=== PATIENT | female | born 2000 | race American Indian/Alaskan Native ===

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

== ENCOUNTER 2020-01-20 22:30 | Inpatient (IN) | payer MEDICAID ==
[2020-01-21] MEDS ORDERED: ACETAMINOPHEN 325 MG TAB PO PRN (02:46)
--- NOTE | 2020-01-21 02:54 | History and Physical Report ---
History of Present Illness Date of examination: 01/21/20 Date of admission: 01/21/2020 Chief complaint: Contractions History of present illness: 19 year old female presents to L&D with contractions. . EDC 02/06/2020 (Pt. stated EDC). Patient states she received care at [facility]; records are not available. Patient denies health problems. She denies complications with this . No records are available. labs drawn upon admission. Patient denies LOF or VB. Patient reports active movement. Past History Past Medical History: no pertinent history Past Surgical History: no surgical history [employer] History: gonorrhea (history of gonorrhea, treated and cured). denies: chlamydia, hepatitis B, hepatitis C, herpes, HIV, syphilis, trichomonas Family/Genetic History: cancer Social history: single, full code. denies: smoking, alcohol abuse, prescription drug abuse, IV drug use - Obstetrical History Expected Date of Delivery: 02/06/20 Actual Gestation: 37 Week(s) 5 Day(s) : 1 Para: 0 Hx # Term Pregnancies: 0 Number of Pregnancies: 0 Spontaneous Abortions: 0 Induced : 0 Number of Living Children: 0 Medications and Allergies Allergies Allergy/AdvReac Type Severity Reaction Status Date / Time No Known Allergies Allergy Verified 12/30/18 16:26 Home Medications Medication Instructions Recorded Confirmed Last Taken Type No.137/Iron/Folic Acd 1 each PO 01/20/20 Unknown History [[facility] Vitamins Tablet] Review of Systems All systems: negative (contractions) - Vital Signs Vital signs: Vital Signs Temp Pulse Resp BP Pulse Ox 98.4 F 80 12 122/77 96 01/20/20 22:57 01/20/20 22:57 01/20/20 22:57 01/20/20 22:57 01/20/20 22:57 Temp Pulse Resp BP Pulse Ox 98.4 F 67 12 122/77 96 01/20/20 22:57 01/21/20 02:51 01/20/20 22:57 01/20/20 23:04 01/21/20 02:51 - Physical Exam Abdomen: Positive: normal appearance, soft. Negative: distention, tenderness, guarding, rigidity Genitourinary (Female): Positive: normal external genitalia, normal perenium. Negative: perineal/vulvar lesions Vagina: Positive: normal moisture Uterus: Positive: enlarged. Negative: tender Anus/Rectum: Positive: normal perianal skin Extremities: Positive: normal. Negative: tenderness, edema - Obstetrical FHR: category 1 Uterine Contraction Monitor Mode: External Cervical Dilatation: 3 Cervical Effacement Percentage: 90 station: -1 Uterine Contraction Pattern: Regular Uterine Contraction Intensity: Mild Results All other labs normal. Assessment and Plan A: at 37 weeks, 4 days gestation. Contractions; rule out labor. GBS unknown. Limited care; no records available. P: Admit for observation. Draw labs. Obtain records. Continuous EFM. Recheck cervix for change/active labor. When in active labor, order GBS prophylaxis.
[2020-01-21] MEDS ORDERED: fentaNYL 100 MCG/2 ML INJ IV ONE (04:56)
[2020-01-21 06:29] LABS: Basophils % (Auto) 0.4 % (0.0-1.8); Eosinophils # (Auto) 0.1 K/mm3 (0.0-0.4); Eosinophils % (Auto) 0.9 % (0.0-4.3); Hematocrit 33.2 % (30.3-42.9); Hemoglobin 11.5 gm/dl (10.1-14.3); Lymphocytes # (Auto) 2.7 K/mm3 (1.2-5.4); Lymphocytes % (Auto) 31.3 % (13.4-35.0); Mean Corpuscular HGB Conc 35 % (30-34); Mean Corpuscular Volume 81 fl (79-97); Monocytes # (Auto) 0.7 K/mm3 (0.0-0.8); Monocytes % (Auto) 8.3 % (0.0-7.3); Platelet Count 242 K/mm3 (140-440); Red Blood Count 4.09 M/mm3 (3.65-5.03); Red Cell Distribution Width 15.7 % (13.2-15.2)
[2020-01-21] MEDS: LACTATED RINGERS 1,000 ML IV SCH ×3 (07:21→14:45)
[2020-01-21] MEDS ORDERED: fentaNYL 100 MCG/2 ML INJ ONE (10:03)
--- NOTE | 2020-01-21 10:05 | Progress Note ---
Assessment and Plan A: IUP @ 37 5/7 Weeks Category I Tracing Active Labor GBS Unknown Poor Pain Control P: AROM Pitocin Augmentation GBS Prophylaxis Prepare for Epidural Anesthesia Subjective - Subjective Date of service: 01/21/20 Patient reports: movement normal, contractions Objective - Vital Signs Vital Signs: Vital Signs - 12hr 01/20/20 01/20/20 01/20/20 22:57 23:04 23:06 Temperature 98.4 F Pulse Rate 80 80 99 H Respiratory 12 Rate Blood Pressure 122/77 Blood Pressure 122/77 [Right] O2 Sat by Pulse 96 96 Oximetry 01/20/20 01/20/20 01/20/20 23:11 23:16 23:21 Temperature Pulse Rate 86 79 84 Respiratory Rate Blood Pressure Blood Pressure [Right] O2 Sat by Pulse 97 97 97 Oximetry 01/20/20 01/20/20 01/20/20 23:26 23:31 23:36 Temperature Pulse Rate 82 82 95 H Respiratory Rate Blood Pressure Blood Pressure [Right] O2 Sat by Pulse 97 97 96 Oximetry 01/20/20 01/20/20 01/20/20 23:41 23:46 23:51 Temperature Pulse Rate 74 90 88 Respiratory Rate Blood Pressure Blood Pressure [Right] O2 Sat by Pulse 97 96 96 Oximetry 01/20/20 01/21/20 01/21/20 23:56 00:01 00:06 Temperature Pulse Rate 84 87 74 Respiratory Rate Blood Pressure Blood Pressure [Right] O2 Sat by Pulse 98 96 96 Oximetry 01/21/20 01/21/20 01/21/20 00:11 00:16 00:21 Temperature Pulse Rate 88 83 79 Respiratory Rate Blood Pressure Blood Pressure [Right] O2 Sat by Pulse 97 97 97 Oximetry 01/21/20 01/21/20 01/21/20 00:26 00:31 00:36 Temperature Pulse Rate 78 76 84 Respiratory Rate Blood Pressure Blood Pressure [Right] O2 Sat by Pulse 98 96 96 Oximetry 01/21/20 01/21/20 01/21/20 00:41 00:46 00:51 Temperature Pulse Rate 82 74 87 Respiratory Rate Blood Pressure Blood Pressure [Right] O2 Sat by Pulse 96 97 97 Oximetry 01/21/20 01/21/20 01/21/20 00:56 01:01 01:06 Temperature Pulse Rate 94 H 78 70 Respiratory Rate Blood Pressure Blood Pressure [Right] O2 Sat by Pulse 99 97 96 Oximetry 01/21/20 01/21/20 01/21/20 01:11 01:16 01:21 Temperature Pulse Rate 91 H 79 75 Respiratory Rate Blood Pressure Blood Pressure [Right] O2 Sat by Pulse 98 96 96 Oximetry 01/21/20 01/21/20 01/21/20 01:26 01:31 01:36 Temperature Pulse Rate 73 96 H 76 Respiratory Rate Blood Pressure Blood Pressure [Right] O2 Sat by Pulse 96 97 98 Oximetry 01/21/20 01/21/20 01/21/20 01:41 01:46 01:51 Temperature Pulse Rate 68 70 74 Respiratory Rate Blood Pressure Blood Pressure [Right] O2 Sat by Pulse 96 97 97 Oximetry 01/21/20 01/21/20 01/21/20 01:56 02:01 02:04 Temperature Pulse Rate 70 75 75 Respiratory Rate Blood Pressure Blood Pressure [Right] O2 Sat by Pulse 97 97 93 Oximetry 01/21/20 01/21/20 01/21/20 02:06 02:10 02:11 Temperature Pulse Rate 87 70 72 Respiratory Rate Blood Pressure Blood Pressure [Right] O2 Sat by Pulse 96 93 95 Oximetry 01/21/20 01/21/20 01/21/20 02:16 02:17 02:21 Temperature Pulse Rate 71 66 79 Respiratory Rate Blood Pressure Blood Pressure [Right] O2 Sat by Pulse 95 94 97 Oximetry 01/21/20 01/21/20 01/21/20 02:25 02:26 02:31 Temperature Pulse Rate 77 73 70 Respiratory Rate Blood Pressure Blood Pressure [Right] O2 Sat by Pulse 93 98 96 Oximetry 01/21/20 01/21/20 01/21/20 02:34 02:36 02:39 Temperature Pulse Rate 71 77 68 Respiratory Rate Blood Pressure Blood Pressure [Right] O2 Sat by Pulse 94 98 94 Oximetry 01/21/20 01/21/20 01/21/20 02:41 02:46 02:51 Temperature Pulse Rate 66 68 67 Respiratory Rate Blood Pressure Blood Pressure [Right] O2 Sat by Pulse 97 96 96 Oximetry 01/21/20 01/21/20 01/21/20 02:56 02:58 03:01 Temperature Pulse Rate 67 68 69 Respiratory Rate Blood Pressure Blood Pressure [Right] O2 Sat by Pulse 97 93 98 Oximetry 01/21/20 01/21/20 01/21/20 03:06 03:11 03:16 Temperature Pulse Rate 64 71 67 Respiratory Rate Blood Pressure Blood Pressure [Right] O2 Sat by Pulse 98 97 95 Oximetry 01/21/20 01/21/20 01/21/20 03:21 03:26 03:31 Temperature Pulse Rate 74 66 67 Respiratory Rate Blood Pressure Blood Pressure [Right] O2 Sat by Pulse 96 97 98 Oximetry 01/21/20 01/21/20 01/21/20 03:36 03:41 03:46 Temperature Pulse Rate 71 73 70 Respiratory Rate Blood Pressure Blood Pressure [Right] O2 Sat by Pulse 96 97 97 Oximetry 01/21/20 01/21/20 01/21/20 03:51 03:56 04:01 Temperature Pulse Rate 74 62 63 Respiratory Rate Blood Pressure Blood Pressure [Right] O2 Sat by Pulse 97 94 96 Oximetry 01/21/20 01/21/20 01/21/20 04:26 04:27 04:31 Temperature 99.0 F Pulse Rate 68 70 74 Respiratory 20 Rate Blood Pressure Blood Pressure 123/60 [Right] O2 Sat by Pulse 97 97 Oximetry 01/21/20 01/21/20 01/21/20 04:36 04:40 04:41 Temperature Pulse Rate 64 63 65 Respiratory Rate Blood Pressure Blood Pressure [Right] O2 Sat by Pulse 97 94 95 Oximetry 01/21/20 01/21/20 01/21/20 04:46 04:50 04:51 Temperature Pulse Rate 59 L 59 L 66 Respiratory Rate Blood Pressure Blood Pressure [Right] O2 Sat by Pulse 96 94 96 Oximetry 01/21/20 01/21/20 01/21/20 04:56 05:00 05:01 Temperature Pulse Rate 61 60 61 Respiratory Rate Blood Pressure Blood Pressure [Right] O2 Sat by Pulse 97 94 97 Oximetry 01/21/20 01/21/20 01/21/20 05:06 05:11 05:16 Temperature Pulse Rate 60 65 70 Respiratory Rate Blood Pressure Blood Pressure [Right] O2 Sat by Pulse 97 98 96 Oximetry 01/21/20 01/21/20 01/21/20 05:21 05:24 05:26 Temperature Pulse Rate 60 66 57 L Respiratory Rate Blood Pressure Blood Pressure [Right] O2 Sat by Pulse 96 94 98 Oximetry 01/21/20 01/21/20 01/21/20 05:31 05:36 05:41 Temperature Pulse Rate 61 60 59 L Respiratory Rate Blood Pressure Blood Pressure [Right] O2 Sat by Pulse 97 99 96 Oximetry 01/21/20 01/21/20 01/21/20 05:42 05:46 05:51 Temperature Pulse Rate 92 H 56 L 62 Respiratory Rate Blood Pressure Blood Pressure [Right] O2 Sat by Pulse 92 97 97 Oximetry 01/21/20 01/21/20 01/21/20 05:56 06:00 06:01 Temperature Pulse Rate 83 74 59 L Respiratory Rate Blood Pressure Blood Pressure [Right] O2 Sat by Pulse 99 91 92 Oximetry 01/21/20 01/21/20 01/21/20 06:06 06:10 06:11 Temperature Pulse Rate 71 73 65 Respiratory Rate Blood Pressure Blood Pressure [Right] O2 Sat by Pulse 97 94 95 Oximetry 01/21/20 01/21/20 01/21/20 06:16 06:21 06:26 Temperature Pulse Rate 68 83 101 H Respiratory Rate Blood Pressure Blood Pressure [Right] O2 Sat by Pulse 97 96 97 Oximetry 01/21/20 01/21/20 01/21/20 06:28 06:31 06:33 Temperature Pulse Rate 98 H 89 128 H Respiratory Rate Blood Pressure Blood Pressure [Right] O2 Sat by Pulse 94 99 94 Oximetry 01/21/20 01/21/20 01/21/20 06:36 06:41 06:46 Temperature Pulse Rate 92 H 106 H 69 Respiratory Rate Blood Pressure Blood Pressure [Right] O2 Sat by Pulse 95 96 97 Oximetry 01/21/20 01/21/20 01/21/20 06:51 06:56 07:01 Temperature Pulse Rate 71 81 75 Respiratory Rate Blood Pressure Blood Pressure [Right] O2 Sat by Pulse 97 96 97 Oximetry 01/21/20 01/21/20 01/21/20 07:06 07:11 07:16 Temperature Pulse Rate 65 88 71 Respiratory Rate Blood Pressure Blood Pressure [Right] O2 Sat by Pulse 98 98 99 Oximetry 01/21/20 01/21/20 01/21/20 07:21 07:26 07:31 Temperature Pulse Rate 64 76 76 Respiratory Rate Blood Pressure Blood Pressure [Right] O2 Sat by Pulse 96 97 97 Oximetry 01/21/20 01/21/20 01/21/20 07:36 07:40 07:41 Temperature 98.8 F Pulse Rate 75 73 Respiratory Rate Blood Pressure Blood Pressure [Right] O2 Sat by Pulse 96 97 Oximetry 01/21/20 01/21/20 01/21/20 07:46 07:51 07:56 Temperature Pulse Rate 78 75 68 Respiratory Rate Blood Pressure Blood Pressure [Right] O2 Sat by Pulse 97 96 95 Oximetry 01/21/20 01/21/20 01/21/20 08:01 08:06 08:11 Temperature Pulse Rate 83 80 74 Respiratory Rate Blood Pressure Blood Pressure [Right] O2 Sat by Pulse 88 96 98 Oximetry 01/21/20 01/21/20 01/21/20 08:16 08:21 08:26 Temperature Pulse Rate 75 74 66 Respiratory Rate Blood Pressure Blood Pressure [Right] O2 Sat by Pulse 98 97 95 Oximetry 01/21/20 01/21/20 01/21/20 08:31 08:36 08:41 Temperature Pulse Rate 76 59 L 68 Respiratory Rate Blood Pressure Blood Pressure [Right] O2 Sat by Pulse 96 97 96 Oximetry 01/21/20 01/21/20 01/21/20 08:46 08:51 08:56 Temperature Pulse Rate 60 69 61 Respiratory Rate Blood Pressure Blood Pressure [Right] O2 Sat by Pulse 97 97 97 Oximetry 01/21/20 01/21/20 01/21/20 09:01 09:06 09:11 Temperature Pulse Rate 67 73 63 Respiratory Rate Blood Pressure Blood Pressure [Right] O2 Sat by Pulse 96 98 97 Oximetry 01/21/20 01/21/20 01/21/20 09:16 09:21 09:26 Temperature Pulse Rate 80 73 77 Respiratory Rate Blood Pressure Blood Pressure [Right] O2 Sat by Pulse 95 95 95 Oximetry 01/21/20 01/21/20 01/21/20 09:31 09:36 09:41 Temperature Pulse Rate 89 89 91 H Respiratory Rate Blood Pressure Blood Pressure [Right] O2 Sat by Pulse 93 98 100 Oximetry 01/21/20 01/21/20 01/21/20 09:46 09:49 09:51 Temperature Pulse Rate 90 125 H 109 H Respiratory Rate Blood Pressure Blood Pressure [Right] O2 Sat by Pulse 98 71 L 90 Oximetry 01/21/20 09:56 Temperature Pulse Rate 98 H Respiratory Rate Blood Pressure Blood Pressure [Right] O2 Sat by Pulse 97 Oximetry - Exam Breasts: normal Cardiovascular: Regular rate Lungs: Normal air movement Abdomen: Present: normal appearance, soft Uterus: Present: normal, firm, fundal height above umbilicus FHR: category 1 Uterine Contraction Monitor Mode: External Cervical Dilatation: 4 (Moderate amount of clear fluid upon AROM @ 0940) Cervical Effacement Percentage: 90 station: 0 Uterine Contraction Pattern: Regular Uterine Tone Measurement Phase: Resting Uterine Contraction Intensity: Moderate Extremities: normal - Labs Labs: Abnormal Labs 01/21/20 05:58 MCHC 35 H RDW 15.7 H [place] % (Auto) 8.3 H Laboratory Results - last 24 hr 01/21/20 01/21/20 01/21/20 05:58 05:58 05:58 WBC 8.6 RBC 4.09 Hgb 11.5 Hct 33.2 MCV 81 MCH 28 MCHC 35 H RDW 15.7 H Plt Count 242 Lymph % (Auto) 31.3 [place] % (Auto) 8.3 H Eos % (Auto) 0.9 Baso % (Auto) 0.4 Lymph # (Auto) 2.7 [place] # (Auto) 0.7 Eos # (Auto) 0.1 Baso # (Auto) 0.0 Seg Neutrophils % 59.1 Seg Neutrophils # 5.1 Hep Bs Antigen Non-reactive Rubella IgG Antibody Immune Antibody Screen 01/21/20 06:00 WBC RBC Hgb Hct MCV MCH MCHC RDW Plt Count Lymph % (Auto) [place] % (Auto) Eos % (Auto) Baso % (Auto) Lymph # (Auto) [place] # (Auto) Eos # (Auto) Baso # (Auto) Seg Neutrophils % Seg Neutrophils # Hep Bs Antigen Rubella IgG Antibody Antibody Screen Negative
[2020-01-21] MEDS ORDERED: TERBUTALINE 1 MG/1 ML INJ SUB-Q PRN (10:07)
[2020-01-21] MEDS ORDERED: LIDOCAINE (2%) 20 MG/1 ML VIAL 20 ML MDV INFILTRATI NR (10:07)
[2020-01-21] MEDS ORDERED: ONDANSETRON 4 MG/2 ML INJ IV PRN ×3 (10:07→21:28)
[2020-01-21] MEDS ORDERED: ePHEDrine SULFATE 50 MG/1 ML INJ IV PRN (10:07)
[2020-01-21] MEDS ORDERED: AMPICILLIN/NS 2 GM/100 ML 2 GM/100 ML BAG IV ONE (10:07)
[2020-01-21] MEDS ORDERED: OXYTOCIN DRIP 30 UNITS/500 ML BAG IV SCH (11:00)
[2020-01-21] MEDS: PRENATAL VIT27-FE FUMARATE-FOLIC ACID VIT TAB PO SCH (11:24)
[2020-01-21] MEDS ORDERED: BUTORPHANOL 2 MG/1 ML INJ IV PRN (12:01)
[2020-01-21] MEDS ORDERED: AMPICILLIN/NS 1 GM/50 ML 1 GM/50 ML BAG IV SCH (14:00)
[2020-01-21] MEDS ORDERED: DEXMEDETOMIDINE 200 MCG/2 ML VIAL IV ONE (14:01)
[2020-01-21] MEDS ORDERED: NalbUPHINE 10 MG/1 ML INJ IV PRN (14:22)
[2020-01-21] MEDS ORDERED: diphenhydrAMINE 50 MG/ML VIAL IV PRN (14:22)
[2020-01-21] MEDS ORDERED: NALOXONE 2 MG/2 ML INJ IV PRN (14:22)
--- NOTE | 2020-01-21 14:23 | Anesthesia Consultation ---
Anesthesia Consult and Med Hx Date of service: 01/21/20 - Airway Anesthetic Teeth Evaluation: Good ROM Head & Neck: Adequate Mental/Hyoid Distance: Adequate Mallampati Class: Class II Intubation Access Assessment: Good - Pulmonary Exam CTA: Yes - Cardiac Exam Cardiac Exam: RRR - Pre-Operative Health Status ASA Pre-Surgery Classification: ASA2 Proposed Anesthetic Plan: Epidural - Pulmonary Hx Smoking: No Hx Asthma: No COPD: No Hx Pneumonia: No Hx Sleep Apnea: No - Cardiovascular System Hx Hypertension: No - Central Nervous System Hx Seizures: No Hx Psychiatric Problems: No - Gastrointestinal Hx Gastroesophageal Reflux Disease: No - Endocrine Hx Renal Disease: No Hx End Stage Renal Disease: No Hx Hypothyroidism: No Hx Hyperthyroidism: No - Hematic Hx Anemia: No Hx Sickle Cell Disease: No - Other Systems Hx Alcohol Use: No
--- NOTE | 2020-01-21 14:25 | Progress Note ---
Labor Epidural - Labor Epidural Start Time: 14:00 Stop Time: 14:14 Performed by:: GLENDA ARELLANO Procedure: Patient is requesting a laboring epidural for laboring pain. Patient IDed, H&P reviewed, all questions and concerns were answered, and consent was signed. Timeout was performed at bedside. Patient in sitting position. Sterile prep and drape was performed. 3ml of 1% lidocaine skin wheal at L[3]- L [4]. 18- gauge Touhy epidural needle was advanced to loss of resistance with air technique. Negative CSF negative blood. Epidural catheter advanced to [12] centimeters. [-] Aspiration [-] test dose. Sterile dressing applied. Patient tolerated procedure.
[2020-01-21 14:27] LABS: Hepatitis C Virus Antibody Non-Reactive (NonReactive)
[2020-01-21] MEDS ORDERED: fentaNYL-BUPIV 2 MCG/ML-0.125% 200 MCG/100 ML BAG EPIDURAL SCH (15:00)
--- NOTE | 2020-01-21 15:43 | Progress Note ---
Assessment and Plan A: IUP @ 37 5/7 Weeks Category I Tracing Active Labor GBS Unknown P: Continue Pitocin Augmentation Continue GBS Prophylaxis GBS Prophylaxis Subjective - Subjective Date of service: 01/21/20 Patient reports: movement normal, other (Resting well under epidural) Objective - Vital Signs Vital Signs: Vital Signs - 12hr 01/21/20 01/21/20 01/21/20 03:46 03:51 03:56 Temperature Pulse Rate 70 74 62 Respiratory Rate Blood Pressure Blood Pressure [Right] O2 Sat by Pulse 97 97 94 Oximetry 01/21/20 01/21/20 01/21/20 04:01 04:26 04:27 Temperature 99.0 F Pulse Rate 63 68 70 Respiratory 20 Rate Blood Pressure Blood Pressure 123/60 [Right] O2 Sat by Pulse 96 97 Oximetry 01/21/20 01/21/20 01/21/20 04:31 04:36 04:40 Temperature Pulse Rate 74 64 63 Respiratory Rate Blood Pressure Blood Pressure [Right] O2 Sat by Pulse 97 97 94 Oximetry 01/21/20 01/21/20 01/21/20 04:41 04:46 04:50 Temperature Pulse Rate 65 59 L 59 L Respiratory Rate Blood Pressure Blood Pressure [Right] O2 Sat by Pulse 95 96 94 Oximetry 01/21/20 01/21/20 01/21/20 04:51 04:56 05:00 Temperature Pulse Rate 66 61 60 Respiratory Rate Blood Pressure Blood Pressure [Right] O2 Sat by Pulse 96 97 94 Oximetry 01/21/20 01/21/20 01/21/20 05:01 05:06 05:11 Temperature Pulse Rate 61 60 65 Respiratory Rate Blood Pressure Blood Pressure [Right] O2 Sat by Pulse 97 97 98 Oximetry 01/21/20 01/21/20 01/21/20 05:16 05:21 05:24 Temperature Pulse Rate 70 60 66 Respiratory Rate Blood Pressure Blood Pressure [Right] O2 Sat by Pulse 96 96 94 Oximetry 01/21/20 01/21/20 01/21/20 05:26 05:31 05:36 Temperature Pulse Rate 57 L 61 60 Respiratory Rate Blood Pressure Blood Pressure [Right] O2 Sat by Pulse 98 97 99 Oximetry 01/21/20 01/21/20 01/21/20 05:41 05:42 05:46 Temperature Pulse Rate 59 L 92 H 56 L Respiratory Rate Blood Pressure Blood Pressure [Right] O2 Sat by Pulse 96 92 97 Oximetry 01/21/20 01/21/20 01/21/20 05:51 05:56 06:00 Temperature Pulse Rate 62 83 74 Respiratory Rate Blood Pressure Blood Pressure [Right] O2 Sat by Pulse 97 99 91 Oximetry 01/21/20 01/21/20 01/21/20 06:01 06:06 06:10 Temperature Pulse Rate 59 L 71 73 Respiratory Rate Blood Pressure Blood Pressure [Right] O2 Sat by Pulse 92 97 94 Oximetry 01/21/20 01/21/20 01/21/20 06:11 06:16 06:21 Temperature Pulse Rate 65 68 83 Respiratory Rate Blood Pressure Blood Pressure [Right] O2 Sat by Pulse 95 97 96 Oximetry 01/21/20 01/21/20 01/21/20 06:26 06:28 06:31 Temperature Pulse Rate 101 H 98 H 89 Respiratory Rate Blood Pressure Blood Pressure [Right] O2 Sat by Pulse 97 94 99 Oximetry 01/21/20 01/21/20 01/21/20 06:33 06:36 06:41 Temperature Pulse Rate 128 H 92 H 106 H Respiratory Rate Blood Pressure Blood Pressure [Right] O2 Sat by Pulse 94 95 96 Oximetry 01/21/20 01/21/20 01/21/20 06:46 06:51 06:56 Temperature Pulse Rate 69 71 81 Respiratory Rate Blood Pressure Blood Pressure [Right] O2 Sat by Pulse 97 97 96 Oximetry 01/21/20 01/21/20 01/21/20 07:01 07:06 07:11 Temperature Pulse Rate 75 65 88 Respiratory Rate Blood Pressure Blood Pressure [Right] O2 Sat by Pulse 97 98 98 Oximetry 01/21/20 01/21/20 01/21/20 07:16 07:21 07:26 Temperature Pulse Rate 71 64 76 Respiratory Rate Blood Pressure Blood Pressure [Right] O2 Sat by Pulse 99 96 97 Oximetry 01/21/20 01/21/20 01/21/20 07:31 07:36 07:40 Temperature 98.8 F Pulse Rate 76 75 Respiratory Rate Blood Pressure Blood Pressure [Right] O2 Sat by Pulse 97 96 Oximetry 01/21/20 01/21/20 01/21/20 07:41 07:46 07:51 Temperature Pulse Rate 73 78 75 Respiratory Rate Blood Pressure Blood Pressure [Right] O2 Sat by Pulse 97 97 96 Oximetry 01/21/20 01/21/20 01/21/20 07:56 08:01 08:06 Temperature Pulse Rate 68 83 80 Respiratory Rate Blood Pressure Blood Pressure [Right] O2 Sat by Pulse 95 88 96 Oximetry 01/21/20 01/21/20 01/21/20 08:11 08:16 08:21 Temperature Pulse Rate 74 75 74 Respiratory Rate Blood Pressure Blood Pressure [Right] O2 Sat by Pulse 98 98 97 Oximetry 01/21/20 01/21/20 01/21/20 08:26 08:31 08:36 Temperature Pulse Rate 66 76 59 L Respiratory Rate Blood Pressure Blood Pressure [Right] O2 Sat by Pulse 95 96 97 Oximetry 01/21/20 01/21/20 01/21/20 08:41 08:46 08:51 Temperature Pulse Rate 68 60 69 Respiratory Rate Blood Pressure Blood Pressure [Right] O2 Sat by Pulse 96 97 97 Oximetry 01/21/20 01/21/20 01/21/20 08:56 09:01 09:06 Temperature Pulse Rate 61 67 73 Respiratory Rate Blood Pressure Blood Pressure [Right] O2 Sat by Pulse 97 96 98 Oximetry 01/21/20 01/21/20 01/21/20 09:11 09:16 09:21 Temperature Pulse Rate 63 80 73 Respiratory Rate Blood Pressure Blood Pressure [Right] O2 Sat by Pulse 97 95 95 Oximetry 01/21/20 01/21/20 01/21/20 09:26 09:31 09:36 Temperature Pulse Rate 77 89 89 Respiratory Rate Blood Pressure Blood Pressure [Right] O2 Sat by Pulse 95 93 98 Oximetry 01/21/20 01/21/20 01/21/20 09:41 09:46 09:49 Temperature Pulse Rate 91 H 90 125 H Respiratory Rate Blood Pressure Blood Pressure [Right] O2 Sat by Pulse 100 98 71 L Oximetry 01/21/20 01/21/20 01/21/20 09:51 09:56 10:01 Temperature Pulse Rate 109 H 98 H 94 H Respiratory Rate Blood Pressure Blood Pressure [Right] O2 Sat by Pulse 90 97 97 Oximetry 01/21/20 01/21/20 01/21/20 10:06 10:07 10:11 Temperature Pulse Rate 97 H 84 Respiratory 16 Rate Blood Pressure Blood Pressure [Right] O2 Sat by Pulse 97 97 Oximetry 01/21/20 01/21/20 01/21/20 10:16 10:21 10:26 Temperature Pulse Rate 95 H 91 H 91 H Respiratory Rate Blood Pressure Blood Pressure [Right] O2 Sat by Pulse 97 97 98 Oximetry 01/21/20 01/21/20 01/21/20 10:31 10:36 10:41 Temperature Pulse Rate 74 99 H 67 Respiratory Rate Blood Pressure Blood Pressure [Right] O2 Sat by Pulse 94 97 96 Oximetry 01/21/20 01/21/20 01/21/20 10:42 10:46 10:51 Temperature Pulse Rate 67 72 63 Respiratory Rate Blood Pressure 119/71 Blood Pressure [Right] O2 Sat by Pulse 96 96 Oximetry 01/21/20 01/21/20 01/21/20 10:56 11:01 11:06 Temperature Pulse Rate 64 71 65 Respiratory Rate Blood Pressure Blood Pressure [Right] O2 Sat by Pulse 97 99 96 Oximetry 01/21/20 01/21/20 01/21/20 11:11 11:12 11:16 Temperature Pulse Rate 63 70 62 Respiratory Rate Blood Pressure 121/67 Blood Pressure [Right] O2 Sat by Pulse 95 97 Oximetry 01/21/20 01/21/20 01/21/20 11:21 11:26 11:31 Temperature Pulse Rate 84 89 94 H Respiratory Rate Blood Pressure Blood Pressure [Right] O2 Sat by Pulse 95 96 96 Oximetry 01/21/20 01/21/20 01/21/20 11:36 11:41 11:44 Temperature Pulse Rate 74 70 99 H Respiratory Rate Blood Pressure 131/86 Blood Pressure [Right] O2 Sat by Pulse 95 99 Oximetry 01/21/20 01/21/20 01/21/20 11:46 11:51 11:56 Temperature Pulse Rate 110 H 85 110 H Respiratory Rate Blood Pressure Blood Pressure [Right] O2 Sat by Pulse 99 99 99 Oximetry 01/21/20 01/21/20 01/21/20 12:01 12:06 12:11 Temperature Pulse Rate 80 115 H 83 Respiratory Rate Blood Pressure Blood Pressure [Right] O2 Sat by Pulse 99 98 100 Oximetry 01/21/20 01/21/20 01/21/20 12:12 12:16 12:21 Temperature Pulse Rate 94 H 111 H 95 H Respiratory 16 Rate Blood Pressure 139/82 Blood Pressure [Right] O2 Sat by Pulse 98 98 Oximetry 01/21/20 01/21/20 01/21/20 12:26 12:31 12:36 Temperature Pulse Rate 71 71 67 Respiratory Rate Blood Pressure Blood Pressure [Right] O2 Sat by Pulse 95 95 96 Oximetry 01/21/20 01/21/20 01/21/20 12:41 12:42 12:46 Temperature Pulse Rate 78 63 97 H Respiratory Rate Blood Pressure 119/66 Blood Pressure [Right] O2 Sat by Pulse 96 94 Oximetry 01/21/20 01/21/20 01/21/20 12:51 12:56 13:01 Temperature Pulse Rate 66 62 69 Respiratory Rate Blood Pressure Blood Pressure [Right] O2 Sat by Pulse 91 96 97 Oximetry 01/21/20 01/21/20 01/21/20 13:06 13:11 13:13 Temperature Pulse Rate 74 74 57 L Respiratory Rate Blood Pressure 129/71 Blood Pressure [Right] O2 Sat by Pulse 98 98 Oximetry 01/21/20 01/21/20 01/21/20 13:16 13:21 13:26 Temperature Pulse Rate 69 107 H 69 Respiratory Rate Blood Pressure Blood Pressure [Right] O2 Sat by Pulse 94 98 98 Oximetry 01/21/20 01/21/20 01/21/20 13:31 13:36 13:41 Temperature Pulse Rate 102 H 98 H 102 H Respiratory Rate Blood Pressure Blood Pressure [Right] O2 Sat by Pulse 99 97 99 Oximetry 01/21/20 01/21/20 01/21/20 13:43 13:46 13:51 Temperature Pulse Rate 69 72 65 Respiratory Rate Blood Pressure 126/72 Blood Pressure [Right] O2 Sat by Pulse 97 100 Oximetry 01/21/20 01/21/20 01/21/20 13:56 14:03 14:08 Temperature Pulse Rate 60 93 H 71 Respiratory Rate Blood Pressure Blood Pressure [Right] O2 Sat by Pulse 94 99 99 Oximetry 01/21/20 01/21/20 01/21/20 14:13 14:16 14:18 Temperature Pulse Rate 67 90 86 Respiratory Rate Blood Pressure 113/58 116/62 Blood Pressure [Right] O2 Sat by Pulse 99 99 Oximetry 01/21/20 01/21/20 01/21/20 14:19 14:22 14:23 Temperature Pulse Rate 84 78 93 H Respiratory Rate Blood Pressure 129/59 125/59 Blood Pressure [Right] O2 Sat by Pulse 100 Oximetry 01/21/20 01/21/20 01/21/20 14:25 14:28 14:31 Temperature Pulse Rate 73 95 H 80 Respiratory Rate Blood Pressure 118/56 123/59 122/58 Blood Pressure [Right] O2 Sat by Pulse 99 Oximetry 01/21/20 01/21/20 01/21/20 14:33 14:34 14:37 Temperature Pulse Rate 74 75 78 Respiratory Rate Blood Pressure 118/57 124/63 Blood Pressure [Right] O2 Sat by Pulse 99 Oximetry 01/21/20 01/21/20 01/21/20 14:38 14:40 14:43 Temperature Pulse Rate 73 85 79 Respiratory Rate Blood Pressure 123/59 122/59 Blood Pressure [Right] O2 Sat by Pulse 98 96 Oximetry 01/21/20 01/21/20 01/21/20 14:46 14:48 14:49 Temperature Pulse Rate 71 74 75 Respiratory Rate Blood Pressure 118/56 117/57 Blood Pressure [Right] O2 Sat by Pulse 96 Oximetry 01/21/20 01/21/20 01/21/20 14:52 14:53 14:55 Temperature Pulse Rate 72 67 70 Respiratory Rate Blood Pressure 118/56 115/57 Blood Pressure [Right] O2 Sat by Pulse 97 Oximetry 01/21/20 01/21/20 01/21/20 14:58 15:01 15:02 Temperature Pulse Rate 86 80 84 Respiratory Rate Blood Pressure 119/57 86/50 94/53 Blood Pressure [Right] O2 Sat by Pulse 99 Oximetry 01/21/20 01/21/20 01/21/20 15:03 15:04 15:07 Temperature Pulse Rate 74 75 58 L Respiratory Rate Blood Pressure 92/50 95/55 Blood Pressure [Right] O2 Sat by Pulse 98 Oximetry 01/21/20 01/21/20 01/21/20 15:08 15:10 15:13 Temperature Pulse Rate 70 77 51 L Respiratory Rate Blood Pressure 100/56 105/57 Blood Pressure [Right] O2 Sat by Pulse 98 100 Oximetry 01/21/20 01/21/20 01/21/20 15:16 15:18 15:19 Temperature Pulse Rate 66 73 62 Respiratory Rate Blood Pressure 109/60 116/61 Blood Pressure [Right] O2 Sat by Pulse 100 Oximetry 01/21/20 01/21/20 01/21/20 15:22 15:23 15:27 Temperature Pulse Rate 66 67 Respiratory Rate Blood Pressure 116/65 99/53 Blood Pressure [Right] O2 Sat by Pulse 100 Oximetry 01/21/20 01/21/20 01/21/20 15:28 15:31 15:33 Temperature Pulse Rate 68 69 61 Respiratory Rate Blood Pressure 99/58 Blood Pressure [Right] O2 Sat by Pulse 100 100 Oximetry 01/21/20 15:38 Temperature Pulse Rate 62 Respiratory Rate Blood Pressure Blood Pressure [Right] O2 Sat by Pulse 100 Oximetry - Exam Cardiovascular: Regular rate Lungs: Normal air movement Abdomen: Present: normal appearance, soft Uterus: Present: normal, firm, fundal height above umbilicus FHR: category 1 Uterine Contraction Monitor Mode: External Cervical Dilatation: 8 Cervical Effacement Percentage: 90 station: -1 Uterine Contraction Frequency (min): 2-4 Uterine Contraction Pattern: Regular Uterine Contraction Intensity: Moderate Extremities: normal - Labs Labs: Abnormal Labs 01/21/20 05:58 MCHC 35 H RDW 15.7 H [place] % (Auto) 8.3 H Laboratory Results - last 24 hr 01/21/20 01/21/20 01/21/20 05:58 05:58 05:58 WBC 8.6 RBC 4.09 Hgb 11.5 Hct 33.2 MCV 81 MCH 28 MCHC 35 H RDW 15.7 H Plt Count 242 Lymph % (Auto) 31.3 [place] % (Auto) 8.3 H Eos % (Auto) 0.9 Baso % (Auto) 0.4 Lymph # (Auto) 2.7 [place] # (Auto) 0.7 Eos # (Auto) 0.1 Baso # (Auto) 0.0 Seg Neutrophils % 59.1 Seg Neutrophils # 5.1 Syphilis IgG Antibody Nonreactive Coronavirus (PCR) Hep Bs Antigen Non-reactive Hepatitis C Antibody Non-reactive HIV 1&2 Antibody Rapid Non react HIV P24 Antigen Non react Rubella IgG Antibody Immune Blood Type Antibody Screen 01/21/20 01/21/20 06:00 10:52 WBC RBC Hgb Hct MCV MCH MCHC RDW Plt Count Lymph % (Auto) [place] % (Auto) Eos % (Auto) Baso % (Auto) Lymph # (Auto) [place] # (Auto) Eos # (Auto) Baso # (Auto) Seg Neutrophils % Seg Neutrophils # Syphilis IgG Antibody Coronavirus (PCR) Negative Hep Bs Antigen Hepatitis C Antibody HIV 1&2 Antibody Rapid HIV P24 Antigen Rubella IgG Antibody Blood Type O POSITIVE Antibody Screen Negative
[2020-01-21] MEDS ORDERED: MINERAL OIL 30 ML ORAL LIQD ONE (15:56)
--- NOTE | 2020-01-21 18:08 | Progress Note ---
Subjective - Subjective Date of service: 01/21/20 Interval history: anterior lip/0 station FHT Category 2 plan for passive descent Recheck cervix in 2 hours Kristel Dumont MD Patient reports: movement normal, other (Resting well under epidural) Objective - Vital Signs Vital Signs: Vital Signs - 12hr 01/21/20 01/21/20 01/21/20 06:10 06:11 06:16 Temperature Pulse Rate 73 65 68 Respiratory Rate Blood Pressure O2 Sat by Pulse 94 95 97 Oximetry 01/21/20 01/21/20 01/21/20 06:21 06:26 06:28 Temperature Pulse Rate 83 101 H 98 H Respiratory Rate Blood Pressure O2 Sat by Pulse 96 97 94 Oximetry 01/21/20 01/21/20 01/21/20 06:31 06:33 06:36 Temperature Pulse Rate 89 128 H 92 H Respiratory Rate Blood Pressure O2 Sat by Pulse 99 94 95 Oximetry 01/21/20 01/21/20 01/21/20 06:41 06:46 06:51 Temperature Pulse Rate 106 H 69 71 Respiratory Rate Blood Pressure O2 Sat by Pulse 96 97 97 Oximetry 01/21/20 01/21/20 01/21/20 06:56 07:01 07:06 Temperature Pulse Rate 81 75 65 Respiratory Rate Blood Pressure O2 Sat by Pulse 96 97 98 Oximetry 01/21/20 01/21/20 01/21/20 07:11 07:16 07:21 Temperature Pulse Rate 88 71 64 Respiratory Rate Blood Pressure O2 Sat by Pulse 98 99 96 Oximetry 01/21/20 01/21/20 01/21/20 07:26 07:31 07:36 Temperature Pulse Rate 76 76 75 Respiratory Rate Blood Pressure O2 Sat by Pulse 97 97 96 Oximetry 01/21/20 01/21/20 01/21/20 07:40 07:41 07:46 Temperature 98.8 F Pulse Rate 73 78 Respiratory Rate Blood Pressure O2 Sat by Pulse 97 97 Oximetry 01/21/20 01/21/20 01/21/20 07:51 07:56 08:01 Temperature Pulse Rate 75 68 83 Respiratory Rate Blood Pressure O2 Sat by Pulse 96 95 88 Oximetry 01/21/20 01/21/20 01/21/20 08:06 08:11 08:16 Temperature Pulse Rate 80 74 75 Respiratory Rate Blood Pressure O2 Sat by Pulse 96 98 98 Oximetry 01/21/20 01/21/20 01/21/20 08:21 08:26 08:31 Temperature Pulse Rate 74 66 76 Respiratory Rate Blood Pressure O2 Sat by Pulse 97 95 96 Oximetry 01/21/20 01/21/20 01/21/20 08:36 08:41 08:46 Temperature Pulse Rate 59 L 68 60 Respiratory Rate Blood Pressure O2 Sat by Pulse 97 96 97 Oximetry 01/21/20 01/21/20 01/21/20 08:51 08:56 09:01 Temperature Pulse Rate 69 61 67 Respiratory Rate Blood Pressure O2 Sat by Pulse 97 97 96 Oximetry 01/21/20 01/21/20 01/21/20 09:06 09:11 09:16 Temperature Pulse Rate 73 63 80 Respiratory Rate Blood Pressure O2 Sat by Pulse 98 97 95 Oximetry 01/21/20 01/21/20 01/21/20 09:21 09:26 09:31 Temperature Pulse Rate 73 77 89 Respiratory Rate Blood Pressure O2 Sat by Pulse 95 95 93 Oximetry 01/21/20 01/21/20 01/21/20 09:36 09:41 09:46 Temperature Pulse Rate 89 91 H 90 Respiratory Rate Blood Pressure O2 Sat by Pulse 98 100 98 Oximetry 01/21/20 01/21/20 01/21/20 09:49 09:51 09:56 Temperature Pulse Rate 125 H 109 H 98 H Respiratory Rate Blood Pressure O2 Sat by Pulse 71 L 90 97 Oximetry 01/21/20 01/21/20 01/21/20 10:01 10:06 10:07 Temperature Pulse Rate 94 H 97 H Respiratory 16 Rate Blood Pressure O2 Sat by Pulse 97 97 Oximetry 01/21/20 01/21/20 01/21/20 10:11 10:16 10:21 Temperature Pulse Rate 84 95 H 91 H Respiratory Rate Blood Pressure O2 Sat by Pulse 97 97 97 Oximetry 01/21/20 01/21/20 01/21/20 10:26 10:31 10:36 Temperature Pulse Rate 91 H 74 99 H Respiratory Rate Blood Pressure O2 Sat by Pulse 98 94 97 Oximetry 01/21/20 01/21/20 01/21/20 10:41 10:42 10:46 Temperature Pulse Rate 67 67 72 Respiratory Rate Blood Pressure 119/71 O2 Sat by Pulse 96 96 Oximetry 01/21/20 01/21/20 01/21/20 10:51 10:56 11:01 Temperature Pulse Rate 63 64 71 Respiratory Rate Blood Pressure O2 Sat by Pulse 96 97 99 Oximetry 01/21/20 01/21/20 01/21/20 11:06 11:11 11:12 Temperature Pulse Rate 65 63 70 Respiratory Rate Blood Pressure 121/67 O2 Sat by Pulse 96 95 Oximetry 01/21/20 01/21/20 01/21/20 11:16 11:21 11:26 Temperature Pulse Rate 62 84 89 Respiratory Rate Blood Pressure O2 Sat by Pulse 97 95 96 Oximetry 01/21/20 01/21/20 01/21/20 11:31 11:36 11:41 Temperature Pulse Rate 94 H 74 70 Respiratory Rate Blood Pressure O2 Sat by Pulse 96 95 99 Oximetry 01/21/20 01/21/20 01/21/20 11:44 11:46 11:51 Temperature Pulse Rate 99 H 110 H 85 Respiratory Rate Blood Pressure 131/86 O2 Sat by Pulse 99 99 Oximetry 01/21/20 01/21/20 01/21/20 11:56 12:01 12:06 Temperature Pulse Rate 110 H 80 115 H Respiratory Rate Blood Pressure O2 Sat by Pulse 99 99 98 Oximetry 01/21/20 01/21/20 01/21/20 12:11 12:12 12:16 Temperature Pulse Rate 83 94 H 111 H Respiratory 16 Rate Blood Pressure 139/82 O2 Sat by Pulse 100 98 Oximetry 01/21/20 01/21/20 01/21/20 12:21 12:26 12:31 Temperature Pulse Rate 95 H 71 71 Respiratory Rate Blood Pressure O2 Sat by Pulse 98 95 95 Oximetry 01/21/20 01/21/20 01/21/20 12:36 12:41 12:42 Temperature Pulse Rate 67 78 63 Respiratory Rate Blood Pressure 119/66 O2 Sat by Pulse 96 96 Oximetry 01/21/20 01/21/20 01/21/20 12:46 12:51 12:56 Temperature Pulse Rate 97 H 66 62 Respiratory Rate Blood Pressure O2 Sat by Pulse 94 91 96 Oximetry 01/21/20 01/21/20 01/21/20 13:01 13:06 13:11 Temperature Pulse Rate 69 74 74 Respiratory Rate Blood Pressure O2 Sat by Pulse 97 98 98 Oximetry 01/21/20 01/21/20 01/21/20 13:13 13:16 13:21 Temperature Pulse Rate 57 L 69 107 H Respiratory Rate Blood Pressure 129/71 O2 Sat by Pulse 94 98 Oximetry 01/21/20 01/21/20 01/21/20 13:26 13:31 13:36 Temperature Pulse Rate 69 102 H 98 H Respiratory Rate Blood Pressure O2 Sat by Pulse 98 99 97 Oximetry 01/21/20 01/21/20 01/21/20 13:41 13:43 13:46 Temperature Pulse Rate 102 H 69 72 Respiratory Rate Blood Pressure 126/72 O2 Sat by Pulse 99 97 Oximetry 01/21/20 01/21/20 01/21/20 13:51 13:56 14:03 Temperature Pulse Rate 65 60 93 H Respiratory Rate Blood Pressure O2 Sat by Pulse 100 94 99 Oximetry 01/21/20 01/21/20 01/21/20 14:08 14:13 14:16 Temperature Pulse Rate 71 67 90 Respiratory Rate Blood Pressure 113/58 116/62 O2 Sat by Pulse 99 99 Oximetry 01/21/20 01/21/20 01/21/20 14:18 14:19 14:22 Temperature Pulse Rate 86 84 78 Respiratory Rate Blood Pressure 129/59 125/59 O2 Sat by Pulse 99 Oximetry 01/21/20 01/21/20 01/21/20 14:23 14:25 14:28 Temperature Pulse Rate 93 H 73 95 H Respiratory Rate Blood Pressure 118/56 123/59 O2 Sat by Pulse 100 99 Oximetry 01/21/20 01/21/20 01/21/20 14:31 14:33 14:34 Temperature Pulse Rate 80 74 75 Respiratory Rate Blood Pressure 122/58 118/57 O2 Sat by Pulse 99 Oximetry 01/21/20 01/21/20 01/21/20 14:37 14:38 14:40 Temperature Pulse Rate 78 73 85 Respiratory Rate Blood Pressure 124/63 123/59 O2 Sat by Pulse 98 Oximetry 01/21/20 01/21/20 01/21/20 14:43 14:46 14:48 Temperature Pulse Rate 79 71 74 Respiratory Rate Blood Pressure 122/59 118/56 O2 Sat by Pulse 96 96 Oximetry 01/21/20 01/21/20 01/21/20 14:49 14:52 14:53 Temperature Pulse Rate 75 72 67 Respiratory Rate Blood Pressure 117/57 118/56 O2 Sat by Pulse 97 Oximetry 01/21/20 01/21/20 01/21/20 14:55 14:58 15:01 Temperature Pulse Rate 70 86 80 Respiratory Rate Blood Pressure 115/57 119/57 86/50 O2 Sat by Pulse 99 Oximetry 01/21/20 01/21/20 01/21/20 15:02 15:03 15:04 Temperature Pulse Rate 84 74 75 Respiratory Rate Blood Pressure 94/53 92/50 O2 Sat by Pulse 98 Oximetry 01/21/20 01/21/20 01/21/20 15:07 15:08 15:10 Temperature Pulse Rate 58 L 70 77 Respiratory Rate Blood Pressure 95/55 100/56 O2 Sat by Pulse 98 Oximetry 01/21/20 01/21/20 01/21/20 15:13 15:16 15:18 Temperature Pulse Rate 51 L 66 73 Respiratory Rate Blood Pressure 105/57 109/60 O2 Sat by Pulse 100 100 Oximetry 01/21/20 01/21/20 01/21/20 15:19 15:22 15:23 Temperature Pulse Rate 62 66 Respiratory Rate Blood Pressure 116/61 116/65 O2 Sat by Pulse 100 Oximetry 01/21/20 01/21/20 01/21/20 15:27 15:28 15:31 Temperature Pulse Rate 67 68 69 Respiratory Rate Blood Pressure 99/53 99/58 O2 Sat by Pulse 100 Oximetry 01/21/20 01/21/20 01/21/20 15:33 15:38 15:43 Temperature Pulse Rate 61 62 67 Respiratory Rate Blood Pressure O2 Sat by Pulse 100 100 100 Oximetry 01/21/20 01/21/20 01/21/20 15:48 15:49 15:53 Temperature Pulse Rate 63 61 69 Respiratory Rate Blood Pressure 101/59 O2 Sat by Pulse 100 100 Oximetry 01/21/20 01/21/20 01/21/20 15:58 16:01 16:03 Temperature Pulse Rate 63 86 77 Respiratory Rate Blood Pressure 117/68 O2 Sat by Pulse 100 100 Oximetry 01/21/20 01/21/20 01/21/20 16:08 16:13 16:18 Temperature Pulse Rate 60 67 68 Respiratory Rate Blood Pressure 109/61 O2 Sat by Pulse 100 100 99 Oximetry 01/21/20 01/21/20 01/21/20 16:23 16:28 16:31 Temperature Pulse Rate 62 64 86 Respiratory Rate Blood Pressure 101/63 O2 Sat by Pulse 100 100 Oximetry 01/21/20 01/21/20 01/21/20 16:33 16:38 16:43 Temperature Pulse Rate 77 71 66 Respiratory Rate Blood Pressure O2 Sat by Pulse 100 100 100 Oximetry 01/21/20 01/21/20 01/21/20 16:47 16:48 16:53 Temperature Pulse Rate 81 79 61 Respiratory Rate Blood Pressure 135/86 O2 Sat by Pulse 100 100 Oximetry 01/21/20 01/21/20 01/21/20 16:58 17:01 17:03 Temperature Pulse Rate 62 80 64 Respiratory Rate Blood Pressure 117/80 O2 Sat by Pulse 100 100 Oximetry 01/21/20 01/21/20 01/21/20 17:08 17:13 17:17 Temperature Pulse Rate 73 83 75 Respiratory Rate Blood Pressure 112/63 O2 Sat by Pulse 100 100 Oximetry 01/21/20 01/21/20 01/21/20 17:18 17:23 17:28 Temperature Pulse Rate 67 72 72 Respiratory Rate Blood Pressure O2 Sat by Pulse 100 100 100 Oximetry 01/21/20 01/21/20 01/21/20 17:33 17:38 17:43 Temperature Pulse Rate 104 H 87 86 Respiratory Rate Blood Pressure O2 Sat by Pulse 100 100 98 Oximetry 01/21/20 01/21/20 01/21/20 17:45 17:48 17:53 Temperature Pulse Rate 33 L 92 H 79 Respiratory Rate Blood Pressure 137/80 O2 Sat by Pulse 72 L 99 100 Oximetry 01/21/20 01/21/20 01/21/20 17:58 18:02 18:03 Temperature Pulse Rate 84 104 H 117 H Respiratory Rate Blood Pressure 122/69 O2 Sat by Pulse 98 97 Oximetry - Labs Labs: Abnormal Labs 01/21/20 05:58 MCHC 35 H RDW 15.7 H Placer % (Auto) 8.3 H Laboratory Results - last 24 hr 01/21/20 01/21/20 01/21/20 05:58 05:58 05:58 WBC 8.6 RBC 4.09 Hgb 11.5 Hct 33.2 MCV 81 MCH 28 MCHC 35 H RDW 15.7 H Plt Count 242 Lymph % (Auto) 31.3 Placer % (Auto) 8.3 H Eos % (Auto) 0.9 Baso % (Auto) 0.4 Lymph # (Auto) 2.7 Placer # (Auto) 0.7 Eos # (Auto) 0.1 Baso # (Auto) 0.0 Seg Neutrophils % 59.1 Seg Neutrophils # 5.1 Syphilis IgG Antibody Nonreactive Coronavirus (PCR) Hep Bs Antigen Non-reactive Hepatitis C Antibody Non-reactive HIV 1&2 Antibody Rapid Non react HIV P24 Antigen Non react Rubella IgG Antibody Immune Blood Type Antibody Screen 01/21/20 01/21/20 06:00 10:52 WBC RBC Hgb Hct MCV MCH MCHC RDW Plt Count Lymph % (Auto) Pl[place] % (Auto) Eos % (Auto) Baso % (Auto) Lymph # (Auto) Placer # (Auto) Eos # (Auto) Baso # (Auto) Seg Neutrophils % Seg Neutrophils # Syphilis IgG Antibody Coronavirus (PCR) Negative Hep Bs Antigen Hepatitis C Antibody HIV 1&2 Antibody Rapid HIV P24 Antigen Rubella IgG Antibody Blood Type O POSITIVE Antibody Screen Negative
[2020-01-21] MEDS: OXYTOCIN 20 UNIT/1000ML DRIP 20 UNITS/1,000 ML BAG IV SCH ×2 (20:20→21:08)
--- NOTE | 2020-01-21 20:26 | Procedure Note ---
OB Delivery Note - Delivery Date of Delivery: 01/21/20 Surgeon: JUDI MA Estimated blood loss: other (250ml) - Vaginal Delivery position: OA Intrapartum events: none Route of delivery: Delivery placenta: spontaneous Delivery cord: 3 umbilical vessels Episiotomy: none Delivery laceration: other (superficialperiurethral and right lateral vagianl wall(superficial)) Delivery repair: other (pt offered repair or ice pack for hemostasis and she chose ice pack: will monitor closely) Anesthesia: none Delivery comments: Patient pushed to deliver a viable female over an intact perineum with weight 2568gms and 7/9. Position HIEU no nuchal cord. Spontaneous cry after vigorous suction and stimulation. Delivery of the anterior shoulder atraumatic, remainder of delivery uncomplicated. Cord gasses obtained. Cord clamped cut and baby handed to waiting [facility] team. Spontaneous delivery of an intact placenta with three-vessel cord. Inspection of the perineum cervix and vagina revealed superficial lacerations: hemostasis achieved with ice packs. . Firm fundus, EBL 250ml. All sponge needle and instrument counts correct x2. Mom and baby stable to . Kristel Ma MD
[2020-01-21] MEDS ORDERED: WITCH HAZEL/ GLYCERIN PAD TP PRN (21:28)
[2020-01-21] MEDS ORDERED: MAGNESIUM HYDROXIDE (MOM) ORAL LIQD UDC PO PRN (21:28)
[2020-01-21] MEDS ORDERED: LANOLIN/ZINC/DIMETHICONE (LANSINOH) 7 GM TP PRN (21:28)
[2020-01-21] MEDS ORDERED: diphenhydrAMINE 25 MG CAP PO PRN (21:28)
[2020-01-21] MEDS ORDERED: HYDROcodone/ACETAMINOPHEN 5-325 MG TAB PO PRN (21:28)
[2020-01-21] MEDS ORDERED: PROMETHAZINE 25 MG TAB PO PRN (21:28)
[2020-01-21] MEDS ORDERED: PROMETHAZINE 25 MG RECT SUPP PR PRN (21:28)
[2020-01-21] MEDS ORDERED: MINERAL OIL 30 ML ORAL LIQD PO PRN (22:00)
[2020-01-21] MEDS: IBUPROFEN 600 MG TAB PO SCH (22:14)
[2020-01-22] MEDS: DOCUSATE SODIUM 100 MG CAP PO SCH ×3 (00:12→21:10)
[2020-01-22 00:51] LABS: Amphetamine Screen,Urine PRESUMPTIVE NEGATIVE; Benzodiazepines Screen,Urine PRESUMPTIVE NEGATIVE; Cannabinoid Screen,Urine PRESUMPTIVE NEGATIVE; Cocaine Screen,Urine PRESUMPTIVE NEGATIVE; Methadone Screen,Urine PRESUMPTIVE NEGATIVE; Opiate Screen,Urine PRESUMPTIVE NEGATIVE
[2020-01-22 00:52] LABS: Bacteria,Urine 1+ /HPF (Negative); Mucus,Urine FEW /HPF
[2020-01-22 01:00] LABS: Bilirubin,Urine NEG (Negative); Blood,Urine LG (Negative); Color,Urine Straw (Yellow); Protein,Urine <15 mg/dL mg/dL (Negative); Urobilinogen,Urine < 2.0 mg/dL (<2.0)
[2020-01-22] MEDS: SENNOSIDES/DOCUSATE SODIUM 8.6/50 MG TAB PO SCH (04:50)
[2020-01-22] MEDS: IBUPROFEN 600 MG TAB PO SCH ×3 (06:36→23:17)
[2020-01-22 09:52] LABS: Hematocrit 26.7 % (30.3-42.9); Hemoglobin 9.4 gm/dl (10.1-14.3)
--- NOTE | 2020-01-22 09:54 | Progress Note ---
Assessment and Plan - Patient Problems (1) Status post normal vaginal delivery Current Visit: Yes Status: Acute Plan to address problem: Continue routine PP orders Anticipate d/c home tomorrow F/U at office in 6 wks for routine PP visit Subjective - Subjective Date of service: 01/22/20 Principal diagnosis: S/P ; PPD#1 Interval history: See admission H & P; OB delivery summary and PP progress notes Patient reports: appetite normal, voiding normally, pain well controlled, flatus, ambulating normally [place]: doing well, bottle feeding (and ) Objective - Vital Signs Latest vital signs: Vital Signs Temp Pulse Resp BP BP Pulse Ox 01/22/20 07:56 98.7 F 88 20 109/59 95 01/22/20 04:54 98.1 F 58 L 20 104/61 96 01/21/20 22:40 99.1 F 78 18 118/63 96 01/21/20 22:06 72 120/61 01/21/20 22:00 99.6 F 20 01/21/20 21:35 78 117/58 01/21/20 21:21 108 H 125/61 01/21/20 21:05 79 138/72 01/21/20 20:50 88 135/76 01/21/20 20:35 112 H 130/72 01/21/20 20:20 101.0 F H 105 H 20 128/71 01/21/20 20:16 126 H 120/60 01/21/20 20:07 140 H 96 01/21/20 20:02 97 H 100 01/21/20 20:01 96 H 119/61 01/21/20 19:57 92 H 99 01/21/20 19:52 94 H 99 01/21/20 19:47 82 97 01/21/20 19:46 74 113/56 01/21/20 19:42 88 99 01/21/20 19:40 102 H 71 L 01/21/20 19:37 105 H 98 01/21/20 19:32 93 H 97 01/21/20 19:30 100.2 F H 94 H 20 144/77 01/21/20 19:28 119 H 64 L 01/21/20 19:27 117 H 98 01/21/20 19:22 116 H 68 L 01/21/20 19:17 95 H 96 01/21/20 19:16 88 132/84 10 19:12 91 H 100 01/21/20 19:07 73 99 05 19:02 78 134/86 01/21/20 18:53 73 100 20 18:48 75 100 0520 18:47 88 129/71 01/21/20 18:43 76 99 0520 18:38 85 98 05 18:33 76 100 20 18:32 69 121/67 100520 18:28 79 100 0520 18:23 91 H 100 01/21/20 18:18 89 100 01/21/20 18:17 103 H 118/79 01/21/20 18:13 78 98 01/21/20 18:08 77 99 01/21/20 18:03 117 H 97 01/21/20 18:02 104 H 122/69 01/21/20 17:58 84 98 01/21/20 17:53 79 100 01/21/20 17:48 92 H 137/80 99 01/21/20 17:45 33 L 72 L 01/21/20 17:43 86 98 05 17:38 87 100 01/21/20 17:33 104 H 100 01/21/20 17:28 72 100 01/21/20 17:23 72 100 0520 17:18 67 100 01/21/20 17:17 75 112/63 05 17:13 83 100 05 17:08 73 100 0520 17:03 64 100 0520 17:01 80 117/80 1005/20 16:58 62 100 05/20 16:53 61 100 1005/20 16:48 79 100 1005/20 16:47 81 135/86 1005/20 16:43 66 100 0520 16:38 71 100 0520 16:33 77 100 1005/20 16:31 86 101/63 1005/20 16:28 64 100 1005/20 16:23 62 100 1005/20 16:18 68 109/61 99 1005/20 16:13 67 100 05/20 16:08 60 100 10/05/20 16:03 77 100 10 16:01 86 117/68 100520 15:58 63 100 100520 15:53 69 100 1020 15:49 61 101/59 1005/20 15:48 63 100 100520 15:43 67 100 1005/20 15:38 62 100 100520 15:33 61 100 100520 15:31 69 99/58 0520 15:28 68 100 0520 15:27 67 99/53 100520 15:23 66 100 100520 15:22 116/65 1020 15:19 62 116/61 100520 15:18 73 100 01/21/20 15:16 66 109/60 01/21/20 15:13 51 L 105/57 100 01/21/20 15:10 77 100/56 01/21/20 15:08 70 98 01/21/20 15:07 58 L 95/55 01/21/20 15:04 75 92/50 01/21/20 15:03 74 98 01/21/20 15:02 84 94/53 01/21/20 15:01 80 86/50 01/21/20 14:58 86 119/57 99 01/21/20 14:55 70 115/57 01/21/20 14:53 67 97 01/21/20 14:52 72 118/56 01/21/20 14:49 75 117/57 01/21/20 14:48 74 96 01/21/20 14:46 71 118/56 01/21/20 14:43 79 122/59 96 01/21/20 14:40 85 123/59 05 14:38 73 98 05 14:37 78 124/63 05 14:34 75 118/57 05 14:33 74 99 1005/20 14:31 80 122/58 0520 14:28 95 H 123/59 99 1005/20 14:25 73 118/56 0520 14:23 93 H 100 05 14:22 78 125/59 0520 14:19 84 129/59 10/05/20 14:18 86 99 01/21/20 14:16 90 116/62 01/21/20 14:13 67 113/58 99 01/21/20 14:08 71 99 01/21/20 14:03 93 H 99 01/21/20 13:56 60 94 01/21/20 13:51 65 100 01/21/20 13:46 72 97 01/21/20 13:43 69 126/72 01/21/20 13:41 102 H 99 01/21/20 13:36 98 H 97 01/21/20 13:31 102 H 99 01/21/20 13:26 69 98 01/21/20 13:21 107 H 98 01/21/20 13:16 69 94 01/21/20 13:13 57 L 129/71 01/21/20 13:11 74 98 01/21/20 13:06 74 98 01/21/20 13:01 69 97 01/21/20 12:56 62 96 01/21/20 12:51 66 91 01/21/20 12:46 97 H 94 01/21/20 12:42 63 119/66 01/21/20 12:41 78 96 01/21/20 12:36 67 96 01/21/20 12:31 71 95 01/21/20 12:26 71 95 01/21/20 12:21 95 H 98 01/21/20 12:16 111 H 98 01/21/20 12:12 94 H 16 139/82 01/21/20 12:11 83 100 01/21/20 12:06 115 H 98 01/21/20 12:01 80 99 01/21/20 11:56 110 H 99 01/21/20 11:51 85 99 01/21/20 11:46 110 H 99 01/21/20 11:44 99 H 131/86 01/21/20 11:41 70 99 01/21/20 11:36 74 95 01/21/20 11:31 94 H 96 01/21/20 11:26 89 96 01/21/20 11:21 84 95 01/21/20 11:16 62 97 01/21/20 11:12 70 121/67 01/21/20 11:11 63 95 01/21/20 11:06 65 96 01/21/20 11:01 71 99 01/21/20 10:56 64 97 01/21/20 10:51 63 96 01/21/20 10:46 72 96 01/21/20 10:42 67 119/71 01/21/20 10:41 67 96 01/21/20 10:36 99 H 97 01/21/20 10:31 74 94 01/21/20 10:26 91 H 98 01/21/20 10:21 91 H 97 01/21/20 10:16 95 H 97 01/21/20 10:11 84 97 01/21/20 10:07 16 01/21/20 10:06 97 H 97 01/21/20 10:01 94 H 97 01/21/20 09:56 98 H 97 Intake and Output 01/21/20 01/22/20 01/22/20 23:59 07:59 15:59 Intake Total 807.466 720 Output Total 1150 800 Balance -342.534 -80 Intake: IV 807.466 PITOCin/NS 20 UNIT/1000ML 799.2 DRIP 20 units In 1,000 ml @ 125 mls/hr IV DIRECT BERTO Rx#:[id number] PITOCin/NS 30 UNIT/500ML 8.266 30 units In 500 ml @ 2 mls/hr IV TITR BERTO Rx#: [id number] Oral 240 Intake, Free Water 480 Output: Urine 1150 800 Indwelling Catheter 600 Void 550 800 Other: Total, Intake Amount 240 Total, Output Amount 550 400 # Voids Void 1 1 Estimated Blood Loss 250 - Exam Breasts: Present: normal Cardiovascular: Present: Regular rate Lungs: Present: Normal air movement Abdomen: Present: soft Uterus: Present: firm, fundal height below umbilicus (U-1, bladder full) Extremities: Present: normal Deep Tendon Reflex Grade: Normal +2 Incision: Present: other (Right lateral vaginal wall laceration, tender but healing as expected) - Labs Labs: Abnormal lab results 01/22/20 Range/Units 00:15 Ur Specific [place] 1.002 L (1.003-1.030) Urine WBC (Auto) 7.0 H (0.0-6.0) /HPF
--- NOTE | 2020-01-22 09:56 | Discharge Summary ---
Providers - Providers Date of Admission: 01/21/20 02:47 Date of discharge: 01/23/20 Attending physician: BÁRBARA KAMINSKI Primary care physician: PHYSICIAN AIDE Hospitalization Reason for admission: rupture of membranes Delivery: Episiotomy: none Laceration: vaginal side wall (right lateral, healing as expected) Other procedures: none complications: none Discharge diagnosis: IUP at term delivered baby: female Hospital course: See admission H & P; OB delivery summary and PP progress notes Condition at discharge: Good Disposition: DC-01 TO HOME OR SELFCARE - Discharge Diagnoses (1) Status post normal vaginal delivery Status: Acute Plan - Provider Discharge Summary Activity: routine, no sex for 6 weeks, no heavy lifting 4 weeks, no strenuous exercise Diet: other (Iron rich diet) Instructions: routine Additional instructions: [] Smoking cessation referral if applicable(refer to patient education folder for contact #) [] Refer to [facility]'s [facility] Booklet Call your doctor immediately for: * Fever > 100.5 * Heavy vaginal bleeding ( >1 pad per hour) * Severe persistent headache * Shortness of breath * Reddened, hot, painful area to leg or breast * Drainage or odor from incision. * Keep vaginal laceration site clean and dry at all times and follow doctor's instructions regarding bathing/showering - Follow up plan Follow up: PRIMARY CARE, [Primary Care Provider] - 6 Weeks
[2020-01-22] MEDS: PRENATAL VIT27-FE FUMARATE-FOLIC ACID VIT TAB PO SCH (11:52)
--- NOTE | 2020-01-22 14:59 | Post Anesthesia Evaluation ---
- Post Anesthesia Evaluation Patient Participated: Yes Airway Patent: Yes Stable Respiratory Function: Yes Nausea/Vomiting: No Temp > 96.8F: Yes Pain Manageable: Yes Adequeate Hydration: Yes Anesthesia Complications: No Block Receding Appropriately: Yes Patient on Ventilator: No
[2020-01-23] MEDS: SENNOSIDES/DOCUSATE SODIUM 8.6/50 MG TAB PO SCH (00:22)
[2020-01-23] MEDS: IBUPROFEN 600 MG TAB PO SCH (05:53)
[2020-01-23 09:48] VITALS: BP 115/82
== END 2020-01-23 10:08 | disposition home or self-care (01) | DRG 775 ==
LOC: TRG 22:30 → APU 22:38 → TRG 01-21 02:46 → OBSVTOIN 01-21 02:47 → LD 01-21 02:47 → INTOOBSV 01-21 10:07 → OBSVTOIN 01-21 10:07 → OB 01-21 22:40
PROVIDERS: ADMIT Obstetrics & Gynecology; ATTEND Obstetrics & Gynecology
PROC: 10E0XZZ Delivery of Products of Conception, External Approach (ICD-10-PCS; principal; 2020-01-21)
PROC: 10907ZC Drainage of Amniotic Fluid, Therapeutic from Products of Conception, Via Natural or Artificial Opening (ICD-10-PCS; 2020-01-21)
PROC: 3E0R3BZ Introduction of Anesthetic Agent into Spinal Canal, Percutaneous Approach (ICD-10-PCS; 2020-01-21)
PROC: 00HU33Z Insertion of Infusion Device into Spinal Canal, Percutaneous Approach (ICD-10-PCS; 2020-01-21)
DX: O70.0 First degree perineal laceration during delivery (principal); Z3A.37 37 weeks gestation of pregnancy; Z37.0 Single live birth; Z20.828 Contact with and (suspected) exposure to other viral communicable diseases
CPT/HCPCS: 36415; 59025; 80307; 81001; 85014; 85018; 85025; 86592; 86706; 86762; 86803; 86850; 86900; 86901; 87806; G0378; J0290; J0595; J2405; J2590; J3010; J3490; J7120; U0003-CS

== ENCOUNTER 2020-08-01 18:34 | Emergency (ER) | payer MEDICAID ==
[2020-08-01 20:05] VITALS: BP 116/57
[2020-08-01] MEDS ORDERED: ACETAMINOPHEN 325 MG TAB PO ONE (20:09)
[2020-08-01] MEDS ORDERED: METOCLOPRAMIDE 10 MG TAB PO ONE (20:09)
[2020-08-01] MEDS ORDERED: diphenhydrAMINE 25 MG CAP PO ONE (20:09)
[2020-08-01 20:49] LABS: Basophils % (Auto) 0.2 % (0.0-1.8); Eosinophils # (Auto) 0.1 K/mm3 (0.0-0.4); Eosinophils % (Auto) 2.6 % (0.0-4.3); Hematocrit 32.9 % (30.3-42.9); Hemoglobin 11.8 gm/dl (10.1-14.3); Lymphocytes # (Auto) 1.8 K/mm3 (1.2-5.4); Lymphocytes % (Auto) 39.3 % (13.4-35.0); Mean Corpuscular HGB Conc 36 % (30-34); Mean Corpuscular Volume 85 fl (79-97); Monocytes # (Auto) 0.6 K/mm3 (0.0-0.8); Monocytes % (Auto) 13.9 % (0.0-7.3); Platelet Count 225 K/mm3 (140-440); Red Blood Count 3.86 M/mm3 (3.65-5.03)
[2020-08-01 21:07] LABS: Alanine Aminotransferase 10 units/L (7-56); Albumin 3.8 g/dL (3.9-5); Blood Urea Nitrogen 6 mg/dL (7-17); Calcium 8.8 mg/dL (8.4-10.2); Hemolysis Index 6
[2020-08-01 21:20] LABS: Bacteria,Urine 1+ /HPF (Negative); Bilirubin,Urine NEG (Negative); Blood,Urine NEG (Negative); Color,Urine Yellow (Yellow); Mucus,Urine 3+ /HPF
[2020-08-01 21:22] LABS: BUN/Creatinine Ratio 12
--- NOTE | 2020-08-01 21:26 | Emergency Department Report ---
ED HPI - General Chief complaint: Abdominal Pain Stated complaint: 13 WKS BACK PAIN Time Seen by Provider: 08/01/20 20:07 Source: patient Mode of arrival: Ambulatory Limitations: No Limitations - History of Present Illness Initial comments: Patient is a 19-year-old female presents emergency room complaints of nausea and vomiting that has been occurring throughout her but has increased over the last couple days. She states that whenever she eats she usually has vomiting but she is able to tolerate liquids. She states that her CNC ROUTER OPERATOR did put her on Zofran but it does not seem to be helping much anymore. She states that she has been on Zofran for approximately a month. She states that she has some mild lower abdominal cramping and lower back cramping. She denies any diarrhea, fever, dysuria, abnormal vaginal discharge, vaginal bleeding. She states that her CNC ROUTER OPERATOR is at [facility]. She states her last menstrual cycle was in April. No past medical history. No allergies medications. /P: 1/A: 0 - Related Data Home Medications Medication Instructions Recorded Confirmed Last Taken No.137/Iron/Folic Acd 1 each PO DAILY 01/20/20 01/21/20 01/18/20 09:00 [[facility] Vitamins Tablet] Previous Rx's Medication Instructions Recorded Last Taken Type Marleny Root 550 mg PO DAILY #14 capsule 08/01/20 Unknown Rx Metoclopramide [Reglan] 10 mg PO Q8HR PRN #12 tab 08/01/20 Unknown Rx Allergies Allergy/AdvReac Type Severity Reaction Status Date / Time No Known Allergies Allergy Verified 12/30/18 16:26 ED Review of Systems ROS: Stated complaint: 13 WKS BACK PAIN Other details as noted in HPI Comment: All other systems reviewed and negative ED Past Medical Hx - Past Medical History Hx Hypertension: No Hx Congestive Heart Failure: No Hx Diabetes: No Hx Deep Vein Thrombosis: No Hx Renal Disease: No Hx Sickle Cell Disease: No Hx Seizures: No Hx Asthma: No Hx COPD: No Hx HIV: No - Social History Smoking Status: Never Smoker Substance Use Type: None - Medications Home Medications: Home Medications Medication Instructions Recorded Confirmed Last Taken Type No.137/Iron/Folic Acd 1 each PO DAILY 01/20/20 01/21/20 01/18/20 09:00 History [[facility] Vitamins Tablet] Marleny Root 550 mg PO DAILY #14 capsule 08/01/20 Unknown Rx Metoclopramide [Reglan] 10 mg PO Q8HR PRN #12 tab 08/01/20 Unknown Rx ED Physical Exam - General Limitations: No Limitations General appearance: alert, in no apparent distress - Head Head exam: Present: atraumatic, normocephalic - Eye Eye exam: Present: normal appearance - ENT ENT exam: Present: mucous membranes moist - Respiratory Respiratory exam: Present: normal lung sounds bilaterally. Absent: respiratory distress, wheezes, rales, rhonchi, stridor, chest wall tenderness, accessory muscle use, decreased breath sounds, prolonged expiratory - Cardiovascular Cardiovascular Exam: Present: regular rate, normal rhythm, normal heart sounds. Absent: systolic murmur, diastolic murmur, rubs, gallop - GI/Abdominal GI/Abdominal exam: Present: soft, normal bowel sounds. Absent: distended, tenderness, guarding, rebound, rigid - Back Exam Back exam: Present: normal inspection, full ROM. Absent: CVA tenderness (R), CVA tenderness (L), paraspinal tenderness, vertebral tenderness - Neurological Exam Neurological exam: Present: alert, oriented X3 - Psychiatric Psychiatric exam: Present: normal affect, normal mood - Skin Skin exam: Present: warm, dry, intact ED Course Vital Signs 08/01/20 20:03 Temperature 98.2 F Pulse Rate 77 Respiratory 18 Rate Blood Pressure 116/57 O2 Sat by Pulse 98 Oximetry ED Medical Decision Making - Lab Data Result diagrams: 08/01/20 20:23 08/01/20 20:23 Lab Results 08/01/20 08/01/20 08/01/20 Range/Units 20:23 20:23 Unknown WBC 4.6 (4.5-11.0) K/mm3 RBC 3.86 (3.65-5.03) M/mm3 Hgb 11.8 (10.1-14.3) gm/dl Hct 32.9 (30.3-42.9) % MCV 85 (79-97) fl MCH 31 (28-32) pg MCHC 36 H (30-34) % RDW 14.0 (13.2-15.2) % Plt Count 225 (140-440) K/mm3 Lymph % (Auto) 39.3 H (13.4-35.0) % White % (Auto) 13.9 H (0.0-7.3) % Eos % (Auto) 2.6 (0.0-4.3) % Baso % (Auto) 0.2 (0.0-1.8) % Lymph # (Auto) 1.8 (1.2-5.4) K/mm3 White # (Auto) 0.6 (0.0-0.8) K/mm3 Eos # (Auto) 0.1 (0.0-0.4) K/mm3 Baso # (Auto) 0.0 (0.0-0.1) K/mm3 Seg Neutrophils % 44.0 (40.0-70.0) % Seg Neutrophils # 2.0 (1.8-7.7) K/mm3 Sodium 135 L (137-145) mmol/L Potassium 3.6 (3.6-5.0) mmol/L Chloride 101.7 (98-107) mmol/L Carbon Dioxide 27 (22-30) mmol/L Anion Gap 10 mmol/L BUN 6 L (7-17) mg/dL Creatinine 0.5 L (0.6-1.2) mg/dL Estimated GFR > 60 ml/min BUN/Creatinine Ratio 12 % Glucose 80 (65-100) mg/dL Calcium 8.8 (8.4-10.2) mg/dL Total Bilirubin 0.20 (0.1-1.2) mg/dL AST 17 (5-40) units/L ALT 10 (7-56) units/L Alkaline Phosphatase 64 (35-129) units/L Total Protein 6.3 (6.3-8.2) g/dL Albumin 3.8 L (3.9-5) g/dL Albumin/Globulin Ratio 1.5 % Lipase 17 (13-60) units/L Urine Color Yellow (Yellow) Urine Turbidity Clear (Clear) Urine pH 6.0 (5.0-7.0) Ur Specific Randolph 1.032 H (1.003-1.030) Urine Protein 100 mg/dl (Negative) mg/dL Urine Glucose (UA) Neg (Negative) mg/dL Urine Ketones Tr (Negative) mg/dL Urine Blood Neg (Negative) Urine Nitrite Neg (Negative) Urine Bilirubin Neg (Negative) Urine Urobilinogen 4.0 (<2.0) mg/dL Ur Leukocyte Esterase Neg (Negative) Urine WBC (Auto) 4.0 (0.0-6.0) /HPF Urine RBC (Auto) 3.0 (0.0-6.0) /HPF U Epithel Cells (Auto) 8.0 (0-13.0) /HPF Urine Bacteria (Auto) 1+ (Negative) /HPF Urine Mucus 3+ /HPF Urine Yeast (Budding) Few /HPF - Radiology Data Radiology results: report reviewed Ordering Physician: ARJUN RICHARDS Date of Service: 08/01/20 Procedure(s): US OB transvaginal Accession Number(s): [id number] cc: ARJUN RICHARDS OB transvaginal, US OB <= 14 weeks fetus INDICATION / CLINICAL INFORMATION: abd/back pain, . COMPARISON: None available. FINDINGS: A single live fetus of approximately 13 weeks gestational age is seen in the uterus. Gestational sac diameter is 6.1 cm and crown-rump length is 8.5 cm. heart rate is 151. The ovaries and I lateral adnexa are unremarkable in appearance. IMPRESSION: Single live fetus in the uterus with heart rate of 151 and gestational age of approximately 13 weeks Signer Name: Barrie Barr MD FACR Signed: 08/01/2020 9:31 PM Workstation Name: [id number] Transcribed By: MS Dictated By: Barrie Barr MD Electronically Authenticated By: Barrie Barr MD Signed Date/Time: 08/01/202130 DD/ 27 TD/TT: - Medical Decision Making Patient is a 19-year-old female presents emergency room complaints of nausea and vomiting that has been occurring throughout her but has increased over the last couple days. She states that whenever she eats she usually has vomiting but she is able to tolerate liquids. She states that her CNC ROUTER OPERATOR did put her on Zofran but it does not seem to be helping much anymore. She states that she has been on Zofran for approximately a month. She states that she has some mild lower abdominal cramping and lower back cramping. She denies any diarrhea, fever, dysuria, abnormal vaginal discharge, vaginal bleeding. She states that her CNC ROUTER OPERATOR is at [facility]. She states her last menstrual cycle was in April. No past medical history. No allergies me dications. /P: 1/A: 0. Vitals are normal. No abdominal tenderness on exam, no guarding, no rebound, no rigidity, normal bowel sounds, no peritoneal signs. Labs are normal. No signs of dehydration. UA without evidence of UTI. OB ultrasound: Single live fetus in the uterus with heart rate of 151 and gestational age of approximately 13 weeks. Patient given Reglan, Tylenol, Benadryl and was able to tolerate p.o. intake while in the emergency department without any difficulty. She had no episodes of vomiting while in the emergency department. Advised patient to follow-up with her CNC ROUTER OPERATOR. Patient given prescription for Reglan and gingerroot. Advised patient Please take medication as prescribed. Increase your water intake. Follow-up with your CNC ROUTER OPERATOR. Return to emergency room for new or symptoms. Critical care attestation.: If time is entered above; I have spent that time in minutes in the direct care of this critically ill patient, excluding procedure time. ED Disposition Clinical Impression: Nausea/vomiting in , Abdominal cramping Disposition: DC-01 TO HOME OR SELFCARE Is pt being admited?: No Does the pt Need Aspirin: No Condition: Stable Instructions: Morning Sickness, Abdominal Pain (ED) Additional Instructions: Please take medication as prescribed. Increase your water intake. Follow-up with your CNC ROUTER OPERATOR. Return to emergency room for new or symptoms. Prescriptions: Marleny Root 550 mg PO DAILY #14 capsule Metoclopramide [Reglan] 10 mg PO Q8HR PRN #12 tab PRN Reason: vomiting Referrals: [facility] [Provider Group] - 2-3 Days Time of Disposition: 21:48 Print Language: ARMENIAN
--- NOTE | 2020-08-01 21:35 | Ultrasound Report ---
US OB transvaginal, US OB <= 14 weeks fetus INDICATION / CLINICAL INFORMATION: abd/back pain, . COMPARISON: None available. FINDINGS: A single live fetus of approximately 13 weeks gestational age is seen in the uterus. Gestational sac diameter is 6.1 cm and crown-rump length is 8.5 cm. heart rate is 151. The ovaries and I latera l adnexa are unremarkable in appearance. IMPRESSION: Single live fetus in the uterus with heart rate of 151 and gestational age of approximately 13 weeks Signer Name: Barrie Barr MD FACR Signed: 08/01/2020 9:31 PM Workstation Name: [id number]
== END 2020-08-01 22:14 | disposition home or self-care (01) ==
LOC: ED 18:34
DX: O21.8 Other vomiting complicating pregnancy (principal); O26.891 Other specified pregnancy related conditions, first trimester; R10.30 Lower abdominal pain, unspecified; M54.5 Low back pain; Z3A.13 13 weeks gestation of pregnancy; Z79.899 Other long term (current) drug therapy
CPT/HCPCS: 36415; 76801; 76817; 80053; 81001; 83690; 85025